=== PATIENT | female | born 1995 | race American Indian/Alaskan Native ===

== ENCOUNTER 2017-07-19 21:49 | Emergency (ER) | payer OTHER ==
--- NOTE | 2017-07-19 23:55 | Emergency Department Report ---
HPI - General Time Seen by Provider: 07/19/17 23:38 - HPI HPI: [facility] The patient is a 22-year-old female presenting with a chief complaint of suicidal ideation. The patient states she's been feeling depressed and today she tried to kill himself by tightening his cough around her neck. Patient denies any other attempts at harming herself. When asked how she is feeling currently the patient replies "okay." The patient was brought in by police with a 1013 the documents the patient "made threats to harm self, attempted to injure or injured self..." Location: Mental state Duration: One day Quality: Suicidal Severity: Severe Modifying factors: [see above] Context: [see above] Mode of transportation: [not driving] ED Past Medical Hx - Past Medical History Previous Medical History?: No - Surgical History Past Surgical History?: No Additional Surgical History: Ectopic - Social History Smoking Status: Never Smoker Substance Use Type: Alcohol (occasional) - Medications Home Medications: Home Medications Medication Instructions Recorded Confirmed Last Taken Type No Known Home Medications [No 07/19/17 07/19/17 Unknown History Reported Home Medications] ED Review of Systems ROS: Stated complaint: PSYCH Other details as noted in HPI ENT: denies: throat pain Respiratory: denies: shortness of breath Cardiovascular: denies: chest pain Gastrointestinal: denies: abdominal pain Musculoskeletal: denies: myalgia Psychiatric: suicidal thoughts Physical Exam - Physical Exam Vital Signs: Vital Signs 07/19/17 23:07 Temperature 98.3 F Pulse Rate 58 L Respiratory 16 Rate Blood Pressure 102/67 [Left] O2 Sat by Pulse 98 Oximetry Physical Exam: GENERAL: The patient is well-developed well-nourished female sitting in chair in no apparent acute distress. Smiling HEENT: Normocephalic. Atraumatic. Extraocular motions are intact. Patient has moist mucous membranes. NECK: Supple. No meningitic signs are noted. There is no adenopathy noted. There are no ligature grimes or stridor CHEST/LUNGS: Clear to auscultation. There is no respiratory distress noted. HEART/CARDIOVASCULAR: Regular. There is no tachycardia. There is no gallop rub or murmur. ABDOMEN: Abdomen is soft, nontender. Patient has normal bowel sounds. There is no abdominal distention. SKIN: There is no rash. There is no edema. There is no diaphoresis. NEURO: The patient is awake, alert, and oriented. The patient is cooperative. The patient has normal speech MUSCULOSKELETAL: There is no evidence of acute injury. ED Course Vital Signs 07/19/17 23:07 Temperature 98.3 F Pulse Rate 58 L Respiratory 16 Rate Blood Pressure 102/67 [Left] O2 Sat by Pulse 98 Oximetry ED Medical Decision Making - Lab Data Result diagrams: 07/19/17 23:57 07/19/17 23:57 Laboratory Tests 07/19/17 07/19/17 07/19/17 23:46 23:46 23:57 WBC 8.5 RBC 5.61 H Hgb 15.3 H Hct 47.5 H MCV 85 MCH 28 MCHC 32 RDW 14.4 Plt Count 344 Lymph % (Auto) 44.5 H Catron % (Auto) 8.8 H Eos % (Auto) 0.7 Baso % (Auto) 0.7 Lymph # 3.8 Catron # 0.7 Eos # 0.1 Baso # 0.1 Seg Neutrophils % 45.3 Seg Neutrophils # 3.9 Sodium Potassium Chloride Carbon Dioxide Anion Gap BUN Creatinine Estimated GFR BUN/Creatinine Ratio Glucose Calcium Total Bilirubin AST ALT Alkaline Phosphatase Total Protein Albumin Albumin/Globulin Ratio HCG, Qual Urine Color Straw Urine Turbidity Clear Urine pH 7.0 Ur Specific Trimble 1.002 L Urine Protein <15 mg/dl Urine Glucose (UA) Neg Urine Ketones Neg Urine Blood Sm Urine Nitrite Neg Urine Bilirubin Neg Urine Urobilinogen < 2.0 Ur Leukocyte Esterase Neg Urine WBC (Auto) < 1.0 Urine RBC (Auto) < 1.0 U Epithel Cells (Auto) 2.0 Salicylates Urine Opiates Screen Presumptive negative Urine Methadone Screen Presumptive negative Acetaminophen Ur Barbiturates Screen Presumptive negative Ur Phencyclidine Scrn Presumptive negative Ur Amphetamines Screen Presumptive negative U Benzodiazepines Scrn Presumptive negative Urine Cocaine Screen Presumptive negative Plasma/Serum Alcohol 07/19/17 07/19/17 07/19/17 23:57 23:57 23:57 WBC RBC Hgb Hct MCV MCH MCHC RDW Plt Count Lymph % (Auto) Catron % (Auto) Eos % (Auto) Baso % (Auto) Lymph # Catron # Eos # Baso # Seg Neutrophils % Seg Neutrophils # Sodium 142 Potassium 3.8 Chloride 100.1 Carbon Dioxide 29 Anion Gap 17 BUN 5 L Creatinine 0.7 Estimated GFR > 60 BUN/Creatinine Ratio 7 Glucose 88 Calcium 9.8 Total Bilirubin 0.70 AST 15 ALT 8 Alkaline Phosphatase 61 Total Protein 8.7 H Albumin 5.3 H Albumin/Globulin Ratio 1.6 HCG, Qual Urine Color Urine Turbidity Urine pH Ur Specific Trimble Urine Protein Urine Glucose (UA) Urine Ketones Urine Blood Urine Nitrite Urine Bilirubin Urine Urobilinogen Ur Leukocyte Esterase Urine WBC (Auto) Urine RBC (Auto) U Epithel Cells (Auto) Salicylates < 0.3 L Urine Opiates Screen Urine Methadone Screen Acetaminophen < 15.0 Ur Barbiturates Screen Ur Phencyclidine Scrn Ur Amphetamines Screen U Benzodiazepines Scrn Urine Cocaine Screen Plasma/Serum Alcohol 07/19/17 07/19/17 23:57 23:57 WBC RBC Hgb Hct MCV MCH MCHC RDW Plt Count Lymph % (Auto) Catron % (Auto) Eos % (Auto) Baso % (Auto) Lymph # Catron # Eos # Baso # Seg Neutrophils % Seg Neutrophils # Sodium Potassium Chloride Carbon Dioxide Anion Gap BUN Creatinine Estimated GFR BUN/Creatinine Ratio Glucose Calcium Total Bilirubin AST ALT Alkaline Phosphatase Total Protein Albumin Albumin/Globulin Ratio HCG, Qual Negative Urine Color Urine Turbidity Urine pH Ur Specific Trimble Urine Protein Urine Glucose (UA) Urine Ketones Urine Blood Urine Nitrite Urine Bilirubin Urine Urobilinogen Ur Leukocyte Esterase Urine WBC (Auto) Urine RBC (Auto) U Epithel Cells (Auto) Salicylates Urine Opiates Screen Urine Methadone Screen Acetaminophen Ur Barbiturates Screen Ur Phencyclidine Scrn Ur Amphetamines Screen U Benzodiazepines Scrn Urine Cocaine Screen Plasma/Serum Alcohol 0.09 H - Differential Diagnosis suicidal ideation Critical care attestation.: If time is entered above; I have spent that time in minutes in the direct care of this critically ill patient, excluding procedure time. ED Disposition Clinical Impression: Suicidal ideation Disposition: [id number]/TX-65 PSY HOSP/PSY UNIT Is pt being admited?: No Does the pt Need Aspirin: No Condition: Serious Referrals: PRIMARY CARE, [Primary Care Provider] - 3-5 Days Time of Disposition: 01:25 (awaiting acceptance)
[2017-07-20 00:30] LABS: Alanine Aminotransferase 8 units/L (7-56); Albumin 5.3 g/dL (3.9-5); Albumin/Globulin Ratio 1.6 %; Alkaline Phosphatase 61 units/L (35-129); Anion Gap 17 mmol/L; BUN/Creatinine Ratio 7; Blood Urea Nitrogen 5 mg/dL (7-17); Calcium 9.8 mg/dL (8.4-10.2); Carbon Dioxide 29 mmol/L (22-30); Chloride 100.1 mmol/L (98-107); Glucose 88 mg/dL (65-100); Potassium 3.8 mmol/L (3.6-5.0); Sodium 142 mmol/L (137-145); Total Protein 8.7 g/dL (6.3-8.2)
[2017-07-20 00:31] LABS: Basophils % (Auto) 0.7 % (0.0-1.8); Eosinophils % (Auto) 0.7 % (0.0-4.3); Hemoglobin 15.3 gm/dl (10.1-14.3); White Blood Count 8.5 K/mm3 (4.5-11.0)
[2017-07-20 00:49] LABS: Urine Drugs of Abuse Note Disclamer
[2017-07-20 00:52] LABS: Hematocrit 47.5 % (30.3-42.9); Mean Corpuscular HGB Conc 32 % (30-34); Mean Corpuscular Hemoglobin 28 pg (28-32); Mean Corpuscular Volume 85 fl (79-97); Platelet Count 344 K/mm3 (140-440); Red Blood Count 5.61 M/mm3 (3.65-5.03); Red Cell Distribution Width 14.4 % (13.2-15.2)
[2017-07-20 01:13] LABS: Bilirubin,Urine NEG (Negative); Blood,Urine SM (Negative); Ketones,Urine NEG (Negative); Leukocyte Esterase,Urine NEG (Negative); Nitrite,Urine NEG (Negative); Protein,Urine <15 mg/dL mg/dL (Negative); RBC,Urine < 1.0 /HPF (0.0-6.0); Urobilinogen,Urine < 2.0 mg/dL (<2.0); WBC,Urine < 1.0 /HPF (0.0-6.0)
[2017-07-20] MEDS ORDERED: REMERON PO PRN (16:16)
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
--- NOTE | 2017-07-22 12:25 | Progress Note ---
Subjective - Reason for Consult Consult date: 07/22/17 Reason for consult: Psychiatry Follow-up - Chief Complaint Chief complaint: "I have to do better" 22 year old female brought in by police on a 1013 due to suicide attempt via strangulation with a scarf. She has a history of depression with prior suicide attempt via overdose and subsequent hospitalization during adolescence. Today patient is calm and cooperative during the assessment. She stated that she was "very stressed" prior to coming to the hospital. She stated that her depression was so "high" because of her relationship issues with her children's father. She is adamant that she wasn't try to kill herself with a scarf. She stated that she does not like taking pills for "anything." She denies SI/HI's and AVH' s. She denies any side effects of the Remeron. Mental Status Exam - Vital signs Last Vital Signs Temp 97.6 F 07/22/17 09:13 Pulse 86 07/22/17 09:13 Resp 20 07/22/17 09:13 BP 103/80 07/22/17 09:13 Pulse Ox 99 07/22/17 09:13 - Exam Narrative exam: MSE: Appearance: calm, cooperative Behavior: regular eye contact Speech: regular rate and tone Mood: "okay" Affect: congruent to mood Thought Process: circumstantial Thought Content: denies SI/HI's and AVH's Motor Activity: lying in bed Cognition: A/O x3 Insight: variable Judgment: variable Assessment and Plan Impression: MDd Severe Type. PTSD. Today patient is calm and cooperative during the assessment. Recommendation/Plan: Continue 1012 with placement to inpatient psy services. Modify Remeron to 15 mg PO HS PRN for sleep consolidation. Discussed risks/ benefits of antidepressants and untreated depression with patient. Patient prefer therapy at this time. Monitor for worsening depression/SI. She was recommended to start Remeron scheduled but she declined.
[2017-07-22] MEDS ORDERED: REMERON PO PRN (22:00)
--- NOTE | 2017-07-23 14:34 | Progress Note ---
Subjective - Reason for Consult Consult date: 07/23/17 Reason for consult: Psychiatry Follow-up - Chief Complaint Chief complaint: "Can I go home today" 22 year old female brought in by police on a 1013 due to suicide attempt via strangulation with a scarf. She has a history of depression with prior suicide attempt via overdose and subsequent hospitalization during adolescence. Today patient is calm and cooperative during the assessment. She is willing see a therapist in the outpatient setting. Per collateral information from her mother Tatiana Alfaro at [phone], she stated that her daughter will be making changes to her life. She stated that she planned to attend family therapy with her daughter. She stated that her daughter can return home once discharged. The patient denies SI/HI's and AVH's. Mental Status Exam - Vital signs Last Vital Signs Temp 99.0 F 07/23/17 10:00 Pulse 61 07/23/17 10:00 Resp 14 07/23/17 10:00 BP 116/80 07/23/17 10:00 Pulse Ox 99 07/23/17 10:00 - Exam Narrative exam: MSE: Appearance: calm, cooperative Behavior: regular eye contact Speech: regular rate and tone Mood: "okay" Affect: congruent to mood Thought Process: linear Thought Content: denies SI/HI's and AVH's Motor Activity: lying in bed Cognition: A/O x3 Insight: appropriate Judgment: appropriate Assessment and Plan Impression: MDD Severe Type. PTSD. Today patient is calm and cooperative during the assessment. Patient is no threat to self. Recommendation/Plan: Rescind 1013. Discussed risk/benefits of antidepressants for depression. Patient prefer therapy at this time. Patient was given outpatient psy services for [facility].
[2017-07-23 18:25] VITALS: BP 107/72
== END 2017-07-23 18:00 | disposition home or self-care (01) ==
LOC: EEVIPCON 21:49 → ED 21:49
DX: R45.851 Suicidal ideations (principal)
CPT/HCPCS: 36415; 80053; 80307; 81001; 84703; 85025; 99285; G0480; 80320